=== PATIENT | female | born 1980 | race African-American/Black ===

== ENCOUNTER 2016-08-12 13:50 | Emergency (ER) | payer MEDICAID ==
[~2016-08-12] VITALS: Ht 170.2 cm; Wt 104.3 kg
[2016-08-12 14:00] VITALS: BP 139/87
[2016-08-12] MEDS ORDERED: NKM (14:04)
[2016-08-12] MEDS ORDERED: IBUPROFEN600 MG ORAL (14:16)
--- NOTE | 2016-08-12 14:41 | Emergency Room Report ---
History of Present Illness General Chief Complaint: Pain Source: Patient Present Illness HPI The patient is a 36-year-old female who denies any medical history presenting for sharp left torso pain which began this afternoon. The patient states that the pain began after drinking a soda. Pain was described as a 10 out of 10 sharp sensation which does not radiate from the left torso. The patient states that the pain has now subsided and is not experiencing any pain at all. The pain did not radiate. No pain with breathing. The patient states that she was lifting heavy objects yesterday but denies any known injury during that time. The patient denies any other symptoms including nausea, vomiting, fever, chills , chest pain, shortness of breath, dysphagia, cough, rash, swelling, abd pain Allergies: Coded Allergies: No Known Allergies (Unverified , 08/12/16) Patient History Past Medical History: see triage record Pertinent Family History: none Last Menstrual Period: last month Reviewed Nursing Documentation: PMH: Agreed, PSxH: Agreed Nursing Documentation-PMH Past Medical History: No Stated History Review of Systems All Other Systems: negative except mentioned in HPI Physical Exam Vital Signs Date Time Temp Pulse Resp B/P Pulse Ox O2 Delivery O2 Flow Rate FiO2 08/12/16 14:00 97.9 76 16 139/87 98 Room Air Sp02 EP Interpretation: reviewed, normal General Appearance: no apparent distress, alert, GCS 15, non-toxic Head: normocephalic, atraumatic Eyes: bilateral eye PERRL, bilateral eye normal inspection ENT: hearing grossly normal, normal pharynx, no angioedema, normal voice Neck: full range of motion, supple/symm/no masses Respiratory: chest non-tender, lungs clear, normal breath sounds, no wheezing, speaking full sentences Cardiovascular #1: regular rate, rhythm, no edema Gastrointestinal: normal bowel sounds, non tender, soft, non-distended, no guarding, no rebound Musculoskeletal: back normal, gait/station normal, normal range of motion, tender - TTP over L lateral thoracic intercostal muscles Neurologic: alert, oriented x3, responsive, motor strength/tone normal, sensory intact, speech normal Psychiatric: judgement/insight normal, memory normal, mood/affect normal, no suicidal/homicidal ideation Skin: normal color, no rash, warm/dry, well hydrated Lymphatic: no adenopathy Medical Decision Making PA Attestation Dr. Feliciano is my supervising physician. Patient management was discussed with my supervising physician Diagnostic Impression: Primary Impression: Muscle strain ER Course The patient is a 36-year-old female who denies any medical history presenting for sharp left torso pain Differential diagnosis include but not limited to ACS, PE, pneumonia, gastritis , muscle strain PE: vitals WNL. NAD HEENT exam unremarkable. Lungs are clear to auscultation bilaterally. No chest tenderness. RRR. No murmurs, rubs, gallops TTP over L lateral thoracic intercostal muscles. No edema. The patient will be discharged home with a prescription for Motrin and will followup with PMD. ER precautions are given Last Vital Signs Date Time Temp Pulse Resp B/P Pulse Ox O2 Delivery O2 Flow Rate FiO2 08/12/16 14:31 97.9 76 16 139/87 98 Room Air Status: improved Disposition: HOME, SELF-CARE Condition: Improved Scripts Ibuprofen* (MOTRIN*) 600 Mg Tablet 600 MG ORAL Q8H Y for For Pain, #30 TAB 0 Refills Prov: ZOFIA HERNANDEZ 08/12/16 Referrals: NON PHYSICIAN (PCP) Patient Instructions: Muscle Strain Additional Instructions: I discussed my findings with the patient. All questions and concerns have been answered. Treatment and medication compliance have been addressed. I advised the patient that they need to follow up with PMD in 3-5 days. Return to ED if symptoms worsen, new symptoms arise, or if needed for any reason. Patient verbalized understanding of discharge instructions. ZOFIA HERNANDEZ Aug 12, 2016 14:41
== END 2016-08-12 14:50 | disposition home or self-care (01) ==
LOC: EMR 14:38
DX: S29.019A Strain of muscle and tendon of unspecified wall of thorax, initial encounter (principal); X58.XXXA Exposure to other specified factors, initial encounter; Y93.9 Activity, unspecified; Y92.9 Unspecified place or not applicable
CPT/HCPCS: 99283